=== PATIENT | male | born 1940 | race Caucasian/White ===

== ENCOUNTER → 2018-08-30 | Outpatient (CLI) | payer MEDICARE, BC ==
--- NOTE | 2018-08-30 17:07 | XR ---
Left RIBS HISTORY: Trauma and pain 4 views of the ribs on the left Displaced fractures of the third and fourth ribs show questionable history healing posteriorly. Possi ble posterior second rib fracture. Deformity the posterior left sixth rib, seventh rib laterally also noted. No evident pneumothorax or pleural effusion. Old left clavicular fracture shows bayonet appos ition. IMPRESSION: Posttraumatic changes are questionable age. Bone scan may be of benefit.
== END | disposition home or self-care (01) ==
LOC: RADXRMAIN 15:26
PROVIDERS: ATTEND Internal Medicine
DX: R07.81 Pleurodynia (principal); S29.9XXA Unspecified injury of thorax, initial encounter

== ENCOUNTER → 2020-05-10 | Day surgery (SDC) | payer BC, MEDICARE ==
[2020-04-26 10:46] VITALS: BMI 32.3
--- NOTE | 2020-05-09 22:13 | P.GSHP ---
History of Present Illness H&P Date: 05/09/20 Chief Complaint: Right inguinal hernia 79-year-old male scheduled for repair right inguinal hernia. Hernia has become more difficult to reduce per the patient. Increasing discomfort lately. Last seen in the office in February. No nausea or vomiting. No change in bowel h abits. No symptoms on the left. No prior hernia repair. Past Medical History Past Medical History: Hypertension, Neurologic Disorder Additional Past Medical History / Comment(s): has ataxia, restless leg syndrome, has had pre-ca skin removed from scalp History of Any Multi-Drug Resistant Organisms: None Reported Past Surgical History: Appendectomy, Orthopedic Surgery, Tonsillectomy Additional Past Surgical History / Comment(s): tendon repair rt hand, col onoscopy Past Anesthesia/Blood Transfusion Reactions: No Reported Reaction Smoking Status: Former smoker Medications and Allergies Home Medications Medication Instructions Recorded Confirmed Type Aspirin 81 mg PO DAILY 07/20/14 04/26/20 History busPIRone HCl [Buspar] 15 mg PO QID 07/20/14 04/26/20 History rOPINIRole HCL [Requip] 1 mg PO HS 07/20/14 04/26/20 History Ergocalciferol (Vitamin D2) 1,250 mcg PO Q7D 04/26/20 04/26/20 History [Vitamin D2 (50,000 units)] Magnesium 500 mg PO MOWEFR 04/26/20 History Metoprolol Tartrate [Lopressor] 25 mg PO BID 04/26/20 04/26/20 History Allergies Allergy/AdvReac Type Severity Reaction Status Date / Time No Known Allergies Allergy Verified 04/26/20 10:38 Surgical - Exam Physical exam: General: Well-developed, well-nourished HEENT: Normocephalic, sclerae nonicteric Abdomen: Nontender, nondistended, reducible right inguinal hernia, no palpable hernia on left Extremities: No edema Neuro: Alert and oriented Assessment and Plan (1) Right inguinal hernia Narrative/Plan: Will proceed with laparoscopic da Bettina assisted repair right inguinal hernia, possible bilateral, possible open with mesh. Risks of bleeding, infection, recurrence, bladder and bowel injury, numbness, nerve injury, conversion to an open procedure were discussed with the patient. The patient understands and wishes to proceed. Status: Acute Code(s): K40.90 - UNIL INGUINAL HERNIA, W/O OBST OR GANGR, NOT SPCF RECUR SNOMED Code(s): 586069405
[~2020-05-10] MED LIST: ACETAMINOPHEN TAB 325 MG TAB PO SCH; ACETAMINOPHEN TAB 500 MG TAB PO PRN; BUPIVACAINE (PF) 0.25% 30 ML VIAL SQ ONE; DEXAMETHASONE SOD PHOSPHATE 4 MG/ML 1 ML VIAL IV ONE; GLYCOPYRROLATE 0.2 MG/ML 2 ML VIAL ONE; HEPARIN SODIUM,PORCINE 5,000 UNIT/ML 1 ML VIAL SQ PRN; HYDROmorphone (PF) 1 MG/ML ONE; HYDROmorphone 0.5 MG/0.5 ML SYRINGE IVP ONE; HYDROmorphone 0.5 MG/0.5 ML SYRINGE IVP PRN; IBUPROFEN 600 MG TAB PO SCH; LACTATED RINGERS 1,000 ML IV ONE; LACTATED RINGERS 1,000 ML IV SCH; LIDOCAINE 1% (10MG/ML) FOR IV START INTRADERMA PRN; LIDOCAINE 1% INJ 10MG/ML (20 ML MDV) ONE; MIDAZOLAM 2 MG/2 ML VIAL ONE; NEOSTIGMINE 1 MG/ML 10 ML VIAL ONE; ONDANSETRON 4 MG/2 ML VIAL IVP ONE; PROPOFOL 10 MG/ML 20 ML VIAL IV ONE; ROCURONIUM 10 MG/ML (10 ML VIAL) IV ONE; SUCCINYLCHOLINE CHLORIDE 100 MG/5 ML SYR IV ONE; TAMSULOSIN 0.4 MG CAP.ER.24H PO STA; fentaNYL (PF) 50 MCG/ML 2 ML AMP ONE
[2020-05-10 14:09] VITALS: TEMP 98.8
--- NOTE | 2020-05-10 14:32 | P.OP ---
Date of Procedure: 05/10/20 Procedure(s) Performed: PREOPERATIVE DIAGNOSIS: Right inguinal hernia POSTOPERATIVE DIAGNOSIS: Same, intra-abdominal adhesions PROCEDURE: Laparoscopic repair right inguinal hernia with the da Bettina robot assistance with mesh, lysis of adhesions SURGEON: Abdirashid EBL: Minimal ANESTHESIA: General COMPLICATIONS: None OPERATIVE PROCEDURE: Patient was placed in the operating table in the supine position. The patient was placed under general anesthesia. The abdomen was prepped and draped in usual sterile fashion. A small curvilinear supraumbilical incision was made. The fascia was retracted anteriorly with Fortino forceps. The Veress needle was inserted. The saline drop test was normal. Insufflation took place to 15 mmHg. An 8 mm trocar was placed into the peritoneal cavity. The patient had dense adhesions in the right midabdomen. The patient's left-sided 8 mm trocar was placed without difficulty. An additional 5 mm trocar was placed in the epigastrium. Through those 2 incisions we're able to lyse adhesions using primarily sharp dissection area the cecum was adherent to the abdominal wall. No serosal tear or injuries were identified. Once we had adequate mobilization of the adhesions the right upper quadrant 8 mm trocar was placed without difficulty. The peritoneal cavity was inspected. The patient had a large direct right inguinal hernia containing the omentum. The peritoneum was incised in a horizontal fashion cephalad to the internal inguinal ring. Following that careful dissection of the preperitoneal space took place. This took place using both electrocautery, sharp dissection but primarily blunt dissection. Visualization of the pubic tubercle and Antony's ligament took place medially. Full dissection took place laterally as well. The hernia sac was fully dissected. Once we had adequate space the extra-large Bard 3-D mesh was advanced into the preperitoneal space and flattened out appropriately to cover all potential hernia sites. A 2-0 black suture was used to secure the mesh medial to the hernia defect. This was a short running stitch. No additional sutures were used. The peritoneal defect was then closed using a locking 2-0 VLok suture. The peritoneal closure included the hernia sac. The pneumoperitoneum was then evacuated. The skin of all 4 sites was closed using a 4-0 Monocryl stitch. Skin glue was then applied. DISPOSITION: Stable to recovery room
[2020-05-10 15:02] VITALS: RESP 17
[2020-05-10 15:23] VITALS: BP 135/79; PULSE 75
== END ==
LOC: OR 11:19
PROVIDERS: ATTEND Surgery
DX: K40.90 Unilateral inguinal hernia, without obstruction or gangrene, not specified as recurrent (principal); K66.0 Peritoneal adhesions (postprocedural) (postinfection); R27.0 Ataxia, unspecified; I10 Essential (primary) hypertension; Z98.890 Other specified postprocedural states; Z90.49 Acquired absence of other specified parts of digestive tract; D64.9 Anemia, unspecified; F41.1 Generalized anxiety disorder; N52.9 Male erectile dysfunction, unspecified; G25.81 Restless legs syndrome; G47.30 Sleep apnea, unspecified; G20 Parkinson's disease; Z87.891 Personal history of nicotine dependence; Z99.89 Dependence on other enabling machines and devices; Z80.8 Family history of malignant neoplasm of other organs or systems; Z79.82 Long term (current) use of aspirin; Z79.899 Other long term (current) drug therapy
CPT/HCPCS: 49650; C1781; J2250; J1644; J1100; J2710; J0690; J2405; J2001; J3010; J1170 ×2; J0330; J2704

== ENCOUNTER → 2020-07-30 | Outpatient (CLI) | payer MEDICARE ==
--- NOTE | 2020-07-30 10:34 | XR ---
EXAMINATION TYPE: XR chest 2V DATE OF EXAM: 07/30/2020 COMPARISON: 08/30/2018 HISTORY: 80 year-old male shortness of breath TECHNIQUE: Frontal and lateral views FINDINGS: Heart borderline enlarged. Mild hyperinflation. Multiple old left-sided rib fracture deformities. No liane consolidation or pleural effusion. Chronic displaced fracture deformity of the left clavicular shaft. IMPRESSION: Borderline heart size. Possible underlying COPD. Old left-sided rib fractures and chronic displaced l eft clavicular shaft fracture deformity. No acute process seen.
== END | disposition home or self-care (01) ==
LOC: RADXRMAIN 10:08
PROVIDERS: ATTEND Internal Medicine
DX: R06.02 Shortness of breath (principal); Z87.81 Personal history of (healed) traumatic fracture
CPT/HCPCS: 71046

== ENCOUNTER 2020-12-20 07:02 | Day surgery (SDC) | payer MEDICARE ==
[2020-12-13 12:04] VITALS: BMI 29.9
[~2020-12-20 07:02] MED LIST changes: -ACETAMINOPHEN TAB 325 MG TAB PO SCH; -ACETAMINOPHEN TAB 500 MG TAB PO PRN; -BUPIVACAINE (PF) 0.25% 30 ML VIAL SQ ONE; -DEXAMETHASONE SOD PHOSPHATE 4 MG/ML 1 ML VIAL IV ONE; -GLYCOPYRROLATE 0.2 MG/ML 2 ML VIAL ONE; -HEPARIN SODIUM,PORCINE 5,000 UNIT/ML 1 ML VIAL SQ PRN; -HYDROmorphone (PF) 1 MG/ML ONE; -HYDROmorphone 0.5 MG/0.5 ML SYRINGE IVP ONE; -HYDROmorphone 0.5 MG/0.5 ML SYRINGE IVP PRN; -IBUPROFEN 600 MG TAB PO SCH; -LACTATED RINGERS 1,000 ML IV ONE; -LACTATED RINGERS 1,000 ML IV SCH; -LIDOCAINE 1% (10MG/ML) FOR IV START INTRADERMA PRN; -LIDOCAINE 1% INJ 10MG/ML (20 ML MDV) ONE; -MIDAZOLAM 2 MG/2 ML VIAL ONE; -NEOSTIGMINE 1 MG/ML 10 ML VIAL ONE; -ONDANSETRON 4 MG/2 ML VIAL IVP ONE; -PROPOFOL 10 MG/ML 20 ML VIAL IV ONE; -ROCURONIUM 10 MG/ML (10 ML VIAL) IV ONE; +SODIUM CHLORIDE 0.9% 1,000 ML IV SCH; -SUCCINYLCHOLINE CHLORIDE 100 MG/5 ML SYR IV ONE; -TAMSULOSIN 0.4 MG CAP.ER.24H PO STA; -fentaNYL (PF) 50 MCG/ML 2 ML AMP ONE
[2020-12-20 07:30] VITALS: TEMP 98.2
[2020-12-20 07:54] LABS: Calcium 9.1 mg/dL (8.4-10.2); Potassium 4.2 mmol/L (3.5-5.1)
[2020-12-20] MEDS ORDERED: LIDOCAINE 1% INJ 10MG/ML (20 ML MDV) ONE (08:25)
[2020-12-20] MEDS ORDERED: PROPOFOL 10 MG/ML 20 ML VIAL IV ONE (08:25)
[2020-12-20] MEDS: BENZOCAINE SPRAY 1 CAN MUCOUS MEM ONE ×2 (08:30→08:36)
[2020-12-20] MEDS ORDERED: BENZOCAINE SPRAY 1 CAN MUCOUS MEM ONE (08:36)
[2020-12-20] MEDS ORDERED: ERGOCALCIFEROL 1,250 MCG (50,000 IU) CAPSULE PO SCH (09:00)
[2020-12-20] MEDS ORDERED: METOPROLOL TARTRATE 25 MG TAB PO SCH (09:00)
[2020-12-20] MEDS ORDERED: APIXABAN 5 MG TAB PO SCH (09:00)
[2020-12-20] MEDS ORDERED: busPIRone HCl 10 MG TAB PO SCH (09:00)
[2020-12-20] MEDS ORDERED: NON FORMULARY DRUG (Magnesium Oxide [Phillips] 500 MG Tablet) PO SCH (09:00)
[2020-12-20] MEDS ORDERED: SODIUM CHLORIDE 0.9% 1,000 ML IV SCH (09:00)
[2020-12-20 09:09] VITALS: RESP 18
--- NOTE | 2020-12-20 09:29 | ECHOT ---
TRANSESOPHAGEAL ECHOCARDIOGRAM INDICATION: Evaluation left atrial appendage. PROCEDURE DETAILS: After explaining the procedure to the patient, its risks and the complications, his blood pressure, heart rate, O2 saturation was monitored. The throat was sprayed with Cetacaine. He received sedation per Anesthesia Department. The probe was introduced into the esophagus without difficulty. Images were obtained. Following that, the probe was removed. FINDINGS: The left atrial size is dilated. Left atrial appendage is normal. Left ventricular size is normal. There is evidence of mild global hypokinesis. Estimated ejection fraction 45-50 percent. The aortic valve appears to be normal. Mild thickening of the mitral valve leaflets was noted. Tricuspid valve is normal. Descending thoracic aorta appears to be normal. Contrast bubble study revealed no shunting across the interatrial septum. No pericardial effusion was noted. Doppler pulse wave and color Doppler were obtained and revealed moderate mitral with mild tricuspid, aortic and pulmonic regurgitation. There was no shunting by color Doppler study. CONCLUSION: 1. Dilated left atrium with normal appearance left atrial appendage. 2. Normal left ventricular size with mild global hypokinesis. 3. Moderate mitral with mild tricuspid, aortic and pulmonic regurgitation. 4. No evidence of pulmonary hypertension. 5. Normal appearance of descending thoracic aorta. 6. No shunting across the interatrial septum. MMODL / IJN: [id number] /
--- NOTE | 2020-12-20 09:43 | CE ---
CARDIAC ELECTROPHYSIOLOGY REPORT CARDIOVERSION PROCEDURE NOTE: INDICATION: Atrial fibrillation. PROCEDURE: After explaining the procedure to the patient, its risks and complications, after obtaining sedated state and performing transesophageal echocardiogram, a synchronized biphasic cardioversion using 75 joules was performed with shinto of normal sinus rhythm. There was no immediate complication. VISHNU / WING: [id number] /
[2020-12-20 10:37] VITALS: PULSE 58
[2020-12-20 10:38] VITALS: BP 152/87
== END 2020-12-20 10:30 | disposition home or self-care (01) ==
LOC: CATHCVL 07:02
PROVIDERS: ATTEND Internal Medicine Interventional Cardiology
DX: I48.91 Unspecified atrial fibrillation (principal); I10 Essential (primary) hypertension; Z79.01 Long term (current) use of anticoagulants; I45.10 Unspecified right bundle-branch block; I48.92 Unspecified atrial flutter; I65.23 Occlusion and stenosis of bilateral carotid arteries; Z79.899 Other long term (current) drug therapy; Z79.82 Long term (current) use of aspirin; Z87.891 Personal history of nicotine dependence; I25.10 Atherosclerotic heart disease of native coronary artery without angina pectoris; G47.33 Obstructive sleep apnea (adult) (pediatric)
CPT/HCPCS: 93312; 93320; 93005; 93325; 92960; 80048; J2001; J2704

== ENCOUNTER 2023-02-08 06:09 | Day surgery (SDC) | payer MEDICARE ==
[2023-02-04 15:45] VITALS: BMI 31.4
[~2023-02-08 06:09] MED LIST changes: +LACTATED RINGERS 1,000 ML IV SCH; +LIDOCAINE 1% (10MG/ML) FOR IV START INTRADERMA PRN; -SODIUM CHLORIDE 0.9% 1,000 ML IV SCH
[2023-02-08] MEDS ORDERED: PROPOFOL 10 MG/ML 20 ML VIAL IV ONE (07:15)
[2023-02-08] MEDS ORDERED: BENZOCAINE SPRAY 1 CAN TOPICAL ONE (07:20)
--- NOTE | 2023-02-08 07:40 | P.PCN ---
Date of Procedure: 02/08/23 Description of Procedure: Indication: Atrial fibrillation Procedure Description: After explaining the procedure to the patient, it's risk and complications, blood pressure, heart rate and O2 saturation were monitored. The throat was sprayed with Cetacaine. Patient received sedation per anesthesia department. The probe was introduced into the esophagus without difficulty. Images were obtained. Following that, the probe was removed. There was no immediate complication. Findings: Left atrial size is dilated, left atrial appendage is normal. Left ventricle size is normal with moderate global hypokinesis, ejection fraction is 45-50%. Aortic valve revealed mild fibrocalcific changes of the cusps was preserved opening, mitral annulus calcification was noted. No pericardial effusion was noted. Descending thoracic aorta appears to be normal. Contrast bubble study revealed no shunting across the intra-atrial septum. Doppler: Pulse wave and color Doppler were obtained, and revealed mild mitral, aortic and tricuspid regurgitation there was no shunting by color Doppler study. Conclusion: 1. Dilated left atrium with normal appearance of the left atrial appendage 2. Mild global hypokinesis of the left ventricle 3. Mild mitral, aortic and tricuspid regurgitation 4. No shunting across the intra-atrial septum 5. Normal appearance of the descending thoracic aorta Cardioversion: After obtaining a VLADIMIR and sedated state synchronized biphasic cardioversion using 150 J and subsequently 200 J was successful in restoring sinus mechanism, there was noted immediate complications.
[2023-02-08] MEDS ORDERED: SODIUM CHLORIDE 0.9% 1,000 ML IV SCH (07:45)
[2023-02-08] MEDS ORDERED: NON FORMULARY DRUG (Magnesium Oxide [Phillips] 500 MG Tablet) PO SCH (07:45)
[2023-02-08 08:00] VITALS: TEMP 97.2
[2023-02-08 08:44] VITALS: RESP 20
[2023-02-08] MEDS ORDERED: METOPROLOL TARTRATE 25 MG TAB PO SCH (09:00)
[2023-02-08] MEDS ORDERED: NON FORMULARY DRUG (Buspirone Hcl [Buspirone Hcl] 15 MG Tablet) PO SCH (09:00)
[2023-02-08] MEDS ORDERED: AMIODARONE 200 MG TAB PO SCH (09:00)
[2023-02-08] MEDS ORDERED: APIXABAN 2.5 MG TABLET PO SCH (09:00)
[2023-02-08] MEDS ORDERED: CHOLECALCIFEROL 25 MCG (1000 IU) TABLET PO SCH (09:00)
[2023-02-08] MEDS ORDERED: LOSARTAN 50 MG TAB PO SCH (09:00)
[2023-02-08 09:06] VITALS: BP 152/86; PULSE 50
== END 2023-02-08 09:32 | disposition home or self-care (01) ==
LOC: OR 06:09
PROVIDERS: ATTEND Internal Medicine Interventional Cardiology
DX: I08.3 Combined rheumatic disorders of mitral, aortic and tricuspid valves (principal); I48.91 Unspecified atrial fibrillation; I10 Essential (primary) hypertension; F15.90 Other stimulant use, unspecified, uncomplicated; Z79.899 Other long term (current) drug therapy; Z79.01 Long term (current) use of anticoagulants; Z87.891 Personal history of nicotine dependence
CPT/HCPCS: 93312; 93320; 93325; 92960; J2704

== ENCOUNTER 2024-03-27 11:55 | Observation (INO) | payer MEDICARE ==
[~2024-03-27 11:55] MED LIST changes: +HYDROmorphone 0.5 MG/0.5 ML SYRINGE IVP PRN; -LACTATED RINGERS 1,000 ML IV SCH; -LIDOCAINE 1% (10MG/ML) FOR IV START INTRADERMA PRN; +MIDAZOLAM 2 MG/2 ML VIAL IV PRN
[2024-03-27] MEDS: SODIUM CHLORIDE 0.9% 1,000 ML IV SCH (12:27)
[2024-03-27] MEDS: IV FLUID CONTINUATION 1,000 ML IV ONE (12:27)
[2024-03-27 12:47] LABS: African American GFR (CKD) 87 (>60 ml/min/1.73 sqM); Anion Gap 2 mmol/L; Blood Urea Nitrogen 22 mg/dL (9-20); Calcium 9.2 mg/dL (8.4-10.2); Carbon Dioxide 31 mmol/L (22-30); Chloride 105 mmol/L (98-107); Glucose 97 mg/dL (74-99); Non-African American GFR(CKD) 75 (>60 ml/min/1.73 sqM); Potassium 5.1 mmol/L (3.5-5.1); Sodium 138 mmol/L (137-145)
[2024-03-27] MEDS ORDERED: fentaNYL (PF) 50 MCG/ML 2 ML AMP ONE (16:08)
[2024-03-27] MEDS ORDERED: diphenhydrAMINE 50 MG/ML 1 ML VIAL ONE (16:08)
[2024-03-27] MEDS ORDERED: PROPOFOL 10 MG/ML 20 ML VIAL IV ONE (16:08)
[2024-03-27] MEDS ORDERED: MIDAZOLAM 2 MG/2 ML VIAL ONE (16:08)
[2024-03-27] MEDS ORDERED: hydrALAZINE HCL 20 MG/ML 1 ML VIAL ONE (16:08)
[2024-03-27] MEDS: ceFAZolin 1 GM in SODIUM CHLORIDE 0.9% IRRIG BTL 250 ML IRRIGATION PRN (16:50)
[2024-03-27] MEDS: HEPARIN SODIUM,PORCINE (1 ML) 2,500 UNIT in SODIUM CHLORIDE 0.9% 250 ML IRRIGATION ONE (16:51)
[2024-03-27] MEDS: ROPIVACAINE 5 MG/ML 30 ML VIAL MISCELLANE ONE (17:02)
[2024-03-27] MEDS: LIDOCAINE 1% INJ 10MG/ML (20 ML MDV) SQ ONE (17:02)
[2024-03-27] MEDS ORDERED: ACETAMINOPHEN TAB 325 MG TAB PO PRN (18:36)
--- NOTE | 2024-03-27 18:53 | P.EPPROC ---
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 Screw deployment was even more difficult on the model #3830-lead Finally a standard RV pacing lead was positioned in the mid RV septum successfully Details of the procedure Patient is brought to the EP lab in a fasting state. Written informed consent w as obtained prior to the procedure. Venogram of the left subclavian vein was performed. This was a completely occluded axillary vein with extensive collaterals, likely from a previous injury Then right-sided venogram was performed and a patent left axillary and subclavian venous system was documented. However the subclavian vein entry to the IVC was almost a 90 degree turn. An incision was made after local anesthesia and IV antibiotics Right pectoral area This was carried down to level of the pectoralis muscle and a subfascial pocket was made. Hemostasis was assured. The right axillary vein was accessed at 2 points. First a single sheath was placed with great difficulty. The wire would not go down into the SVC. Finally we were able to pass the wire into the IVC. The sheath was placed but on account of the venous anatomy it was kinked at the junction. His bundle sheath was then placed once again with some difficulty over the dilator. The His bundle sheath along with diagnostic catheters were positioned in the RV septum. Excellent position was obtained for left bundle pacing but the 3830-lead could not be talked of screwed deep into the septum most likely on account of the kink in the 90 degree turn at the subclavian SVC junction. Multiple attempts were made and while excellent entry points in the septum were obtained based upon the paced QRS morphology, the lead could not be deployed deep in, close to the left bundle. Therefore, a standard [employer] RV pacing lead was positioned in the right side of the heart and then in the RV septum and screwed in. Model #[id number], 58 cm in length. Pacing threshold 1 V at 0.4 ms, R waves 6 to 7 mV and pacing impedance 760 ohms anode test negative The lead was secured with underlying pectoralis muscle. Pocket was irrigated with antibiotic solution and the lead was then connected to the single-chamber pacemaker [place] XT SR [facility], ViewRay pacemaker Antibiotic pouch was placed The wound was closed in 3 layers and dressed per protocol Device rhythm programmed to VVIR 60-130 bpm
--- NOTE | 2024-03-27 18:55 | P.PRLE ---
RE: Samy Chapin Dear Oli Mr. Chapin underwent single-chamber pacemaker plantation for tachybradycardia syndrome/atrial fibrillation with RVR I am increasing the dose of beta-blockers now to Toprol-XL 100 mg p.o. daily for better rate control and this may be maximized further to achieve adequate rate control in the future Thank you for entrusting me with the care of the patient Warm regards Sincerely Remi Magana
[2024-03-27] MEDS: DABIGATRAN 75 MG CAP PO SCH (20:01)
[2024-03-27] MEDS: METOPROLOL SUCCINATE (ER) 100 MG TAB.ER.24H PO SCH (20:01)
[2024-03-27] MEDS: busPIRone HCl 10 MG TAB PO SCH (21:35)
[2024-03-27] MEDS: busPIRone HCl 5 MG TAB PO SCH (21:53)
[2024-03-27] MEDS: METOPROLOL TARTRATE 50 MG TAB PO STA (23:42)
[2024-03-28] MEDS: DILTIAZEM 125 MG in SODIUM CHLORIDE 0.9% 100 ML IV SCH (02:04)
[2024-03-28] MEDS: DILTIAZEM DRIP BOLUS FROM BAG 1 MG SOLN IV ONE (02:04)
[2024-03-28 05:47] LABS: Basophils % (A) 0 %; Eosinophils % (A) 0 %; HCT 44.6 % (39.0-53.0); HGB 14.7 gm/dL (13.0-17.5); Lymphocytes # (A) 1.6 k/uL (1.0-4.8); Lymphocytes % (A) 15 %; MCH 31.5 pg (25.0-35.0); MCHC 32.9 g/dL (31.0-37.0); MCV 95.8 fL (80.0-100.0); Mean Platelet Volume 7.5; Monocytes # (A) 0.5 k/uL (0-1.0); Monocytes % (A) 5 %; Neutrophils # (A) 8.3 k/uL (1.3-7.7); Neutrophils % (A) 79 %; Platelet Count 155 k/uL (150-450); RBC 4.66 m/uL (4.30-5.90); RDW 12.7 % (11.5-15.5); WBC 10.5 k/uL (3.8-10.6)
[2024-03-28] MEDS: ACETAMINOPHEN IV (For NPO) 1,000 MG in EMPTY BAG 1 BAG IVPB ONE (07:17)
[2024-03-28] MEDS: LACTATED RINGERS 1,000 ML IV SCH (07:51)
--- NOTE | 2024-03-28 08:06 | XR ---
EXAMINATION TYPE: XR chest 2V DATE OF EXAM: 03/28/2024 7:04 AM COMPARISON: 07/30/2020 CLINICAL INDICATION: Male, 83 years old with history of Lead placement check, TECHNIQUE: Frontal and lateral views of the chest are obtained. FINDINGS: Single lead pacer noted to be in place with single lead within the right ventricle. No pneu mothorax present. There is no focal air space opacity, pleural effusion, or pneumothorax seen. The c ardiac silhouette size is within normal limits. The osseous structures are intact. IMPRESSION: No acute cardiopulmonary process. [facility], , 03/28/2024 8:03 AM
[2024-03-28] MEDS: METOPROLOL SUCCINATE (ER) 100 MG TAB.ER.24H PO SCH (08:13)
[2024-03-28] MEDS: VITAMIN E (DL,TOCOPHERYL ACET) 400 UNIT (180 MG) CAP PO SCH (08:14)
[2024-03-28] MEDS: CHOLECALCIFEROL 25 MCG (1000 IU) TABLET PO SCH (08:14)
[2024-03-28] MEDS ORDERED: LOSARTAN 50 MG TAB PO SCH (09:00)
[2024-03-28] MEDS ORDERED: BIOTIN PO SCH (09:00)
[2024-03-28] MEDS: METOPROLOL SUCCINATE (ER) 100 MG TAB.ER.24H PO STA (15:03)
--- NOTE | 2024-03-28 17:18 | P.EPPROC ---
- EP Procedure Note Electrophysiology Procedure Note: Patient is resting comfortably in bed. Denies any major symptoms His pacemaker site on the right side is healed well minimal hematoma His heart rates are elevated and at night he was given IV Cardizem Yesterday started on Toprol-XL and today increase the dose further He is off IV Cardizem His hemoglobin is normal white count is normal TSH is 0.9 Impression atrial fibrillation/atrial tachycardia with RVR Underlying sick sinus syndrome and tachybradycardia syndrome with difficult rate control Status post right sided permanent pacemaker implantation, single-chamber in the right ventricular septum Added Toprol-XL for a total of 300 mg p.o. daily Held losartan today Will continue to monitor for another 24 hours to achieve better rate control Likely discharge tomorrow
--- NOTE | 2024-03-29 08:20 | P.DS ---
Providers Date of admission: 03/28/24 11:27 Attending physician: Remi Magana Primary care physician: [facility] Hospital Course: Patient is resting comfortably in bed. However despite a total of 300 mg of metoprolol succinate, his heart rates remain between 120 240 beats a minute He has no symptoms at rest and denies any chest discomfort dizziness. His blood pressures also been stable On examination he is tachycardic on auscultation rate 130 beats minute, afebrile respirations normal Blood pressure 113/62, 137/92 142/88 mmHg Normal pulse ox Impression Tachybradycardia syndrome Atrial fibrillation, organized, with RVR unresponsive to metoprolol succinate 300 mg daily for rate control Patient states that his heart rates are better controlled when he took metoprolol tartrate 3 times a day He does want to go home today Plan Start amiodarone 200 mg p.o. daily and plan an electrical cardioversion in the end of April next year Short acting metoprolol 3 times a day Metoprolol tartrate 100 mg at 8 AM, 50 mg at 3 PM and 7 PM in the evening If his rates are better controlled on drug therapy perhaps cardioversion may be avoided since he has failed amiodarone in the past. However his rates are not controlled then he should undergo electrical cardioversion His single-chamber right-sided pacemaker is functioning normally Hold losartan for now Continue Pradaxa Discussed with the patient in detail Plan - Discharge Summary Discharge Rx Participant: No New Discharge Prescriptions: New Amiodarone [Cordarone] 200 mg PO DAILY #90 tab Metoprolol Tartrate [Lopressor] 100 mg PO DAILY #90 tablet Metoprolol Tartrate [Lopressor] 50 mg PO BID #180 tab Discontinued Losartan Potassium 50 mg PO DAILY Metoprolol Tartrate [Lopressor] 25 mg PO 1200 Metoprolol Tartrate [Lopressor] 25 mg PO HS Metoprolol Tartrate [Lopressor] 50 mg PO QAM No Action Cholecalciferol [Vitamin D3 (25 Mcg = 1000 Iu)] 50 mcg PO DAILY Biotin (Unknown Dose) 1 tab PO DAILY Dabigatran Etexilate Mesylate [Pradaxa] 75 mg PO BID Magnesium Oxide [Sloan] 500 mg PO MOWEFRSA rOPINIRole HCL [Requip] 1 mg PO HS Vitamin E (Dl,Tocopheryl Acet) [Vitamin E (400 Iu = 180 mg)] 400 unit PO DAILY busPIRone HCL 1.5 tab PO QID Discharge Medication List Magnesium Oxide [Sloan] 500 mg PO MOWEFRSA 12/13/20 [History] Biotin (Unknown Dose) 1 tab PO DAILY 02/04/23 [History] Cholecalciferol [Vitamin D3 (25 Mcg = 1000 Iu)] 50 mcg PO DAILY 02/04/23 [History] Vitamin E (Dl,Tocopheryl Acet) [Vitamin E (400 Iu = 180 mg)] 400 unit PO DAILY 02/04/23 [History] busPIRone HCL 1.5 tab PO QID 02/04/23 [History] rOPINIRole HCL [Requip] 1 mg PO HS 02/04/23 [History] Dabigatran Etexilate Mesylate [Pradaxa] 75 mg PO BID 03/24/24 [History] Amiodarone [Cordarone] 200 mg PO DAILY #90 tab 03/29/24 [Rx] Metoprolol Tartrate [Lopressor] 50 mg PO BID #180 tab 03/29/24 [Rx] Metoprolol Tartrate [Lopressor] 100 mg PO DAILY #90 tablet 03/29/24 [Rx] Follow up Appointment(s)/Referral(s): Remi Magana MD [STAFF PHYSICIAN] - 03/30/24 3:30 pm (APPOINTMENT IS ON WednesdayMar AT 3:30 PM FOR DEVICE CLINIC. Follow-up with Dr. Verma in the first week of April ) Andrzej Verma MD [STAFF PHYSICIAN] - 2 Weeks (Follow-up in the first week of April with Dr. Verma Take metoprolol to tartrate 100 mg at 8 AM, 50 mg at 3 PM and 50 mg at 7 PM in the evening Amiodarone 200 mg p.o. daily Hold losartan Continue Pradaxa) Activity/Diet/Wound Care/Special Instructions: PATIENT EDUCATION MATERIAL Instructions following a heart rhythm device implant. 1. Keep dressing DRY for 5 DAYS. You may cover the area with Saran or Cling Wrap, prior to a shower. 2. The dressing will be removed in the Device Clinic at [facility]. Absorbable sutures were used to close the wound. 3. Avoid raising the left arm above the shoulder level. 4 week restriction 4. Avoid arm movements, like backscratching, rubbing the head, or pulling on a cord. 4 weeks restriction 5. Gentle range of motion movements of the shoulder, closest to the incision should be performed to avoid a frozen shoulder. (Pendulum exercises of the shoulder) 6. The opposite arm may be used freely. 7. Avoid driving for 7 days. 8. Avoid activities such as golfing, swimming, weed whacking, lifting more than 10 pounds weight, bowling, gymnastics and weight training/lifting. (6 weeks restriction) 9. Activities such as wood chopping with an axe, pull-ups in the gymnasium, power lifting, arc-welding, being close to home induction cooktops will always be a problem. 10. Arm sling is only a reminder not to raise the arm above the head. You do not need to keep the arm completely immobilized. Your free to move the arm and use it and for normal activities. In case of any problems, please call [facility], [place], @ [phone], Attention: Device Clinic Device clinic follow-up in 5 days Follow-up with primary legal collector in 2 weeks Discharge Disposition: HOME SELF-CARE
[2024-03-29] MEDS: AMIODARONE 200 MG TAB PO SCH (08:27)
[2024-03-29] MEDS: MAGNESIUM OXIDE 400 MG TAB PO SCH (08:27)
[2024-03-29] MEDS: METOPROLOL TARTRATE 50 MG TAB PO SCH ×2 (08:27→14:20)
[2024-03-29 13:32] VITALS: BP 133/95; PULSE 139; RESP 16; TEMP 98.4
== END 2024-03-29 16:28 | disposition home or self-care (01) ==
LOC: CATHEP 11:55 → 6NMEDSUR 18:24 → CATHEP 18:30 → 6NMEDSUR 03-28 11:27
PROVIDERS: ADMIT Internal Medicine Clinical Cardiac Electrophysiology; ATTEND Internal Medicine Clinical Cardiac Electrophysiology
DX: I49.5 Sick sinus syndrome (principal); I48.19 Other persistent atrial fibrillation; I48.91 Unspecified atrial fibrillation
CPT/HCPCS: 96365; 96375; 33207; 33233; 80048; 84443; 85025; 71046; G0379; G0378 ×2; C1898; C1786; J1644; J0690 ×2; J2003; J2795

== ENCOUNTER → 2024-08-18 | Outpatient (CLI) | payer MEDICARE ==
[2024-08-18 14:16] LABS: Basophils # (A) 0.06 10*3/uL (0.00-0.10); Basophils % (A) 0.7 %; Eosinophils # (A) 0.07 10*3/uL (0.04-0.35); Eosinophils % (A) 0.8 %; HCT 46.5 % (39.6-50.0); HGB 16.2 g/dL (13.0-17.0); Lymphocytes # (A) 1.77 10*3/uL (0.90-5.00); Lymphocytes % (A) 21.1 %; MCH 32.9 pg (27.0-32.0); MCHC 34.8 g/dL (32.0-37.0); MCV 94.3 fL (80.0-97.0); Mean Platelet Volume 9.9 fL (9.5-12.2); Monocytes # (A) 0.67 10*3/uL (0.20-1.00); Neutrophils # (A) 5.78 10*3/uL (1.80-7.70); Neutrophils % (A) 69.2 %; Platelet Count 181 10*3/uL (140-440); RBC 4.93 10*6/uL (4.40-5.60); RDW 12.6 % (11.5-14.5); WBC 8.37 10*3/uL (4.50-10.00)
[2024-08-18 14:21] LABS: African American GFR (CKD) 69 (>60 ml/min/1.73 sqM); Anion Gap 9 mmol/L; Blood Urea Nitrogen 28 mg/dL (9-20); Calcium 9.6 mg/dL (8.4-10.2); Carbon Dioxide 24 mmol/L (22-30); Chloride 105 mmol/L (98-107); Glucose 124 mg/dL (74-99); Non-African American GFR(CKD) 59 (>60 ml/min/1.73 sqM); Potassium 4.9 mmol/L (3.5-5.1); Sodium 138 mmol/L (137-145)
[2024-08-18 14:26] LABS: INR 1.5 (<1.2); Prothrombin Time 15.3 sec (10.0-12.5)
--- NOTE | 2024-08-19 10:06 | CT ---
EXAMINATION TYPE: CT angio chest DATE OF EXAM: 08/18/2024 3:45 PM COMPARISON: Chest radiograph. CLINICAL INDICATION: Male, 84 years old with history of I48.21 PERMANENT ATRIAL FIBRILLATION; preproc edure watchman TECHNIQUE/CONTRAST: CTA scan of the thorax is performed with IV Contrast, patient injected with 65 mL of Isovue 370, MIP images are created and reviewed these are created on a separate workstation.. CT DLP: 1362 mGycm, Automated exposure control for dose reduction was used. FINDINGS: Lungs/Pleura: No evidence of focal consolidation, pleural effusion or pneumothorax. Mild centrilobula r emphysema changes. Right upper lung calcified granuloma. Airway: Large airways are patent. Heart: Size within normal limits. Mild coronary artery calcifications present. Left atrial appendage is patent with no evidence CT contrast within the lumen atrial appendage opening measuring up to 27 mm. . Connection is terminating in the right ventricle. Vasculature: There is no evidence for a filling defect within the pulmonary vasculature to suggest ac cowlitz pulmonary embolism. The pulmonary artery is of normal size. Mediastinum: No gross evidence of adenopathy. Musculoskeletal: No acute osseous abnormalities, left anterior rib deformities from prior fracture or surgical intervention. Soft Tissues/lymph nodes: Unremarkable. Lower neck: No significant findings. Upper Abdomen: Medial gastric wall high density calcified area possibly calcified diverticulum of the gastric wall. IMPRESSION: 1. Left atrial appendage is patent with opening measuring up to 27 mm. 2. No evidence for acute thoracic process. 3. Right upper lobe calcified granuloma. 4. Mild emphysema. [facility], , 08/19/2024 10:03 AM
== END | disposition home or self-care (01) ==
LOC: RADCTMAIN 13:31
PROVIDERS: ATTEND Student in an Organized Health Care Education/Training Program
DX: I48.21 Permanent atrial fibrillation (principal); J84.10 Pulmonary fibrosis, unspecified; J43.2 Centrilobular emphysema
CPT/HCPCS: 80048; 85025; 85610; 71275; Q9967